=== PATIENT | female | born 1975 | race African-American/Black ===

== ENCOUNTER 2018-06-16 05:28 | Day surgery (SDC) | payer BC ==
--- NOTE | 2018-05-27 12:54 | EKG REPORT ---
SEVERITY:- NORMAL ECG - SINUS RHYTHM : Confirmed by: Sreekanth Langley MD 27-May-2018 12:53:34
[2018-05-27 13:33] LABS: HEMATOCRIT 39.2 % (36.0-47.0); HEMOGLOBIN 13.1 g/dL (12.0-15.5); MEAN CORPUSCULAR HEMOGLOBIN 30.9 pg (27.0-33.4); MEAN CORPUSCULAR HGB CONC 33.4 g/dL (32.0-36.0); MEAN CORPUSCULAR VOLUME 93 fl (80-97); PLATELET COUNT 262 10^3/uL (150-450); RED BLOOD COUNT 4.23 10^6/uL (3.72-5.28); RED CELL DISTRIBUTION WIDTH 13.3 % (11.5-14.0); WHITE BLOOD COUNT 8.6 10^3/uL (4.0-10.5)
[2018-05-27 13:37] LABS: INTERNATIONAL RATION (INR) 0.93; PROTHROMBIN TIME 12.9 SEC (11.4-15.4)
[2018-05-27 13:38] LABS: PARTIAL THROMBOPLASTIN TIME 27.8 SEC (23.5-35.8)
[2018-05-27 14:16] LABS: ANION GAP 7 (5-19); BLOOD UREA NITROGEN 11 mg/dL (7-20); CALCIUM 9.1 mg/dL (8.4-10.2); CARBON DIOXIDE 28 mmol/L (22-30); CHLORIDE 106 mmol/L (98-107); GLUCOSE 76 mg/dL (75-110); POTASSIUM 4.6 mmol/L (3.6-5.0); SODIUM 141.1 mmol/L (137-145)
[2018-05-28 08:40] LABS: HEPATITIS A AB IGM Negative (Negative); HEPATITIS B CORE AB IGM Negative (Negative); HEPATITS B SURFACE ANTIGEN Negative (Negative)
[2018-05-29 11:39] LABS: HCV VER AB RESULT Non Reactive (Non Reacti)
[~2018-06-16 05:28] MED LIST: CEFAZOLIN 1 GM/D5W RTU 1 GM/50 ML RTUPB IV PRN; LACTATED RINGERS 1000 ML IV PRN; LIDOCAINE 0.5% INJ-PF (5 MG/ML) 50 ML SDV SUBCUT PRN
[2018-06-16] MEDS ORDERED: CEFAZOLIN 1 GM/D5W RTU 1 GM/50 ML RTUPB IV ONE (05:33)
[2018-06-16] MEDS ORDERED: LIDOCAINE 1%/EPINEPHRINE INJ 20 ML VIAL ONE (06:38)
[2018-06-16] MEDS ORDERED: SODIUM BICARBONATE 8.4% INJ 50 MEQ/50 ML DISP.SYRIN ONE (06:38)
[2018-06-16] MEDS ORDERED: POVIDONE-IODINE 5% OPH PREP SOLN 30 ML ONE (06:39)
[2018-06-16] MEDS ORDERED: MIDAZOLAM 2 MG/2 ML INJ ONE (07:19)
[2018-06-16] MEDS ORDERED: PROPOFOL INJ 200 MG/20 ML VIAL IV ONE (07:19)
[2018-06-16] MEDS ORDERED: FENTANYL CITRATE INJ/PF 250 MCG/5 ML AMPULE ONE (07:19)
[2018-06-16] MEDS ORDERED: ONDANSETRON HCL INJ/PF 4 MG/2 ML SDV ONE (07:19)
[2018-06-16] MEDS ORDERED: ACETAMINOPHEN 1,000 MG/100 ML RTUPB IV ONE (07:20)
[2018-06-16] MEDS ORDERED: MORPHINE SULFATE 10 MG/ML INJ IV PRN (08:50)
[2018-06-16] MEDS ORDERED: MEPERIDINE HCL/PF INJ 25 MG/1 ML DISP.SYRIN IV PRN (08:50)
[2018-06-16] MEDS ORDERED: DIPHENHYDRAMINE HCL 50 MG/ML VIAL IV PRN (08:50)
[2018-06-16] MEDS ORDERED: OXYCODONE-ACETAMINOPHEN 5-325 MG TABLET PO PRN ×2 (08:50)
[2018-06-16] MEDS ORDERED: FENTANYL CITRATE INJ/PF 100 MCG/2 ML AMPUL IV PRN ×3 (08:50)
[2018-06-16] MEDS ORDERED: PROMETHAZINE HCL INJ 25 MG/1 ML VIAL IV PRN ×2 (08:50)
--- NOTE | 2018-06-16 09:43 | Operative Report ---
Operative Report DATE OF SURGERY: 06/16/18 PREOPERATIVE DIAGNOSIS: Mass of the left inframammary crease POSTOPERATIVE DIAGNOSIS: Mass of the left inframammary crease extending subfascial and partly intramuscular OPERATION: Excision of mass of left inframammary crease with dissection that extended subfascial and into the muscular layer. Multilayer complex closure. SURGEON: LEANN SINGH ANESTHESIA: GA TISSUE REMOVED OR ALTERED: Lipomatous mass COMPLICATIONS: None ESTIMATED BLOOD LOSS: Minimal PROCEDURE: Location of the masses were identified before bringing the patient to the operating room. Patient was laid on the table in a sloppy lateral position after general anesthesia was induced . The patient was then prepped with a Betadine scrub and a Betadine solution. The patient was then draped in a sterile and aseptic fashion. A timeout was performed after marking the areas to be resected. The area was anesthetized with 1% lidocaine with epinephrine and bicarb. We then went ahead and incised the skin overlying the mass . We dissected through the subcutaneous tissue. Throughout the case the Bovie and the bipolar were used. We then went ahead and continued our dissection. We had a cut through the fascial layer in order to encounter the mass. We then dissected the mass taking it off of the filaments muscle fascia. As we dissected the mass we noted that there was entrance below the deep fascia and into the muscle. We dissected this in order to remove the source of the mass. Step by step we dissected the mass using the Bovie and the bipolar so that we would minimize bleeding. The mass was then dissected 360 and removed in toto. Mass was removed from under the fascia and then under the deep fascia and muscle . We then obtained hemostasis with the bipolar and the Bovie. The wound was irrigated with a Betadine sterile water solution. Again hemostasis was confirmed. The closure was then performed closing the deep fascia with inverted 3-0 Vicryl sutures and the subcutaneous tissue with 3-0 Vicryl sutures The deep dermis was closed also with 3-0 Vicryl sutures. The skin was then closed with 3-0 PDS with a subcuticular stitch and a support stitch in the center. We then applied Dermabond and a light pressure dressing. The patient was then reversed from anesthesia and taken to the [facility] for recovery This dictation was performed using Dragon naturally speaking. If there are any inconsistencies please contact the surgeon. Subjective: No complaints Objective: Vital signs stable afebrile No bleeding Dressing intact Assessment and plan: Doing well. Elevate the operative site. Resume medications. Take antibiotics for 1 day Follow-up Full instructions were given to the patient and family and they understand Portions of this note may be dictated using [employer] voice recognition software. Occasional variations and spelling and vocabulary could be possible and are unintentional. Additionally, there is a chance that some errors may not be caught or corrected. Please notify the offer of any discrepancies noted or if any statements are unclear.
--- NOTE | 2018-06-16 09:45 | Discharge Summary ---
Discharge Summary (SDC) - Discharge Final Diagnosis: Subfascial and partial intramuscular mass of the left inframammary crease Date of Surgery: 06/16/18 Condition: Good Treatment or Instructions: Leave the dressing intact. Antibiotics for 1 day, then discontinue. Elevate operative area to decrease swelling. Do not strain, or lift heavy objects. Call for excessive bleeding, increased temperature of 101, uncontrolled pain, or excessive nausea or vomiting. You may reach Dr. Acosta through his office at [phone]. In the event of an emergency after hours, then contact Dr. Acosta through . Return to the office for a postop check on . The time will be scheduled by the nursing staff of prior to discharge. Please give the patient a copy of their labs and EKG so they can bring this to their PMD. Thank you Portions of this note may be dictated using [employer] voice recognition software. Occasional variations and spelling and vocabulary could be possible and are unintentional. Additionally, there is a chance that some errors may not be caught or corrected. Please notify the offer of any discrepancies noted or if any statements are unclear. Referrals: RICK LINDER MD [Primary Care Provider] - Discharge Diet: As Tolerated Discharge Activity: No Lifting/Push/Pulling Report the Following to Your Physician Immediately: Unusual Bleeding - Keep torso elevated. Do not lay on the incision line. Do not stretch the incision.
[2018-06-16] MEDS ORDERED: METOCLOPRAMIDE HCL INJ/PF 10 MG/2 ML SDV ONE (10:15)
[2018-06-16 11:46] VITALS: BP 121/78
[2018-06-16] MEDS ORDERED: SUCCINYLCHOLINE CHLORIDE INJ 200 MG/10 ML VIAL ONE (12:40)
== END 2018-06-16 11:40 | disposition home or self-care (01) ==
LOC: OROUT 05:28
PROVIDERS: ATTEND Plastic Surgery
DX: D17.1 Benign lipomatous neoplasm of skin and subcutaneous tissue of trunk (principal); I10 Essential (primary) hypertension; J45.909 Unspecified asthma, uncomplicated; G43.909 Migraine, unspecified, not intractable, without status migrainosus; Z79.891 Long term (current) use of opiate analgesic; Z01.818 Encounter for other preprocedural examination; Z86.2 Personal history of diseases of the blood and blood-forming organs and certain disorders involving the immune mechanism
CPT/HCPCS: 93010; 93005; 36415 ×2; 84703; 85027; 85610; 85730; 81025; 80048; 86803; 86804; 87522; 80074; 88304 ×2; 21556; 13100; J2250; J0690; J3010; J3490 ×3; J2765; J0330; J2405; J2704; J0131; 400